=== PATIENT | male | born 1980 | race Hispanic/Latino ===

== ENCOUNTER → 2017-07-01 | Outpatient (CLI) | payer OTHER | LOC: OIH 13:10 | PROVIDERS: ATTEND Internal Medicine Cardiovascular Disease | DX: Z13.6 Encounter for screening for cardiovascular disorders (principal) | CPT/HCPCS: 75571 ==

== ENCOUNTER → 2023-12-24 | Outpatient (CLI) | payer OTHER ==
[2023-12-24 22:44] VITALS: PULSE 64; RESP 16
[2023-12-24 23:30] VITALS: PULSE 58; RESP 14
[2023-12-25] VITALS (11 sets, daily range): PULSE 56–78; RESP 12–16
== END | disposition home or self-care (01) ==
LOC: CANSCHCLI → SLP 20:01
PROVIDERS: ATTEND Physician Assistant Medical
DX: G47.33 Obstructive sleep apnea (adult) (pediatric) (principal)
CPT/HCPCS: 95810

== ENCOUNTER → 2024-01-07 | Outpatient (CLI) | payer OTHER ==
[2024-01-07 22:04] VITALS: PULSE 64; RESP 14
[2024-01-07 22:30] VITALS: PULSE 62; RESP 12
[2024-01-07 23:00] VITALS: PULSE 58; RESP 14
[2024-01-07 23:30] VITALS: PULSE 50; RESP 12
[2024-01-08] VITALS (12 sets, daily range): PULSE 48–64; RESP 10–16
== END | disposition home or self-care (01) ==
LOC: CANSCHCLI → SLP 20:19
PROVIDERS: ATTEND Physician Assistant Medical
DX: G47.33 Obstructive sleep apnea (adult) (pediatric) (principal)
CPT/HCPCS: 95811